=== PATIENT | male | born 1950 | race Hispanic/Latino ===

== ENCOUNTER → 2022-10-20 | Outpatient (CLI) | payer OTHER ==
[~2022-10-20] MED LIST: ALLO100T PO; ASPI-556 PO; ATOR40TA69 PO; CANA1TAB PO; CARV12.511 PO; FENO145T26 PO; FURO20TA4 PO; LOSA50TA64 PO
== END | disposition home or self-care (01) ==
LOC: RAH 14:31
PROVIDERS: ATTEND Internal Medicine
DX: M10.9 Gout, unspecified (principal)
CPT/HCPCS: 73130

== ENCOUNTER → 2022-12-08 | Outpatient (CLI) | payer OTHER | END | disposition home or self-care (01) | LOC: RAH 10:26 | PROVIDERS: ATTEND Internal Medicine | DX: I51.7 Cardiomegaly (principal); R05.3 Chronic cough | CPT/HCPCS: 71046 ==

== ENCOUNTER → 2023-05-14 | Outpatient (CLI) | payer OTHER ==
[~2023-05-14] MED LIST changes: +REGADENOSON 0.4 MG/5 ML PF SYG IVP ONE
== END | disposition home or self-care (01) ==
LOC: SHCH 08:54
PROVIDERS: ATTEND Internal Medicine Cardiovascular Disease
DX: R94.39 Abnormal result of other cardiovascular function study (principal); R94.31 Abnormal electrocardiogram [ECG] [EKG]; I51.7 Cardiomegaly
CPT/HCPCS: 78452; 96374; 93017; J2785; A9500 ×2

== ENCOUNTER → 2023-05-26 | Outpatient (CLI) | payer OTHER ==
[~2023-05-26] MED LIST changes: -REGADENOSON 0.4 MG/5 ML PF SYG IVP ONE
== END | disposition home or self-care (01) ==
LOC: SHCH 10:43
PROVIDERS: ATTEND Internal Medicine Cardiovascular Disease
DX: I08.1 Rheumatic disorders of both mitral and tricuspid valves (principal); I25.10 Atherosclerotic heart disease of native coronary artery without angina pectoris; Z95.3 Presence of xenogenic heart valve
CPT/HCPCS: 93306

== ENCOUNTER → 2023-06-18 | Outpatient (CLI) | payer OTHER ==
[2023-06-18 16:32] LABS: ALBUMIN 3.6 g/dL (3.5-5.0); BILIRUBIN,TOTAL 0.8 mg/dL (0.2-1.0); CREATININE 1.4 mg/dL (0.5-1.5); POTASSIUM 4.2 mmol/L (3.5-5.1); TOTAL PROTEIN, SERUM 8.3 g/dL (6.0-8.3)
== END | disposition home or self-care (01) ==
LOC: LAB 14:39
PROVIDERS: ATTEND Internal Medicine Cardiovascular Disease
DX: I10 Essential (primary) hypertension (principal); I48.0 Paroxysmal atrial fibrillation; I35.8 Other nonrheumatic aortic valve disorders
CPT/HCPCS: 36415; 80053; 83880

== ENCOUNTER 2023-09-18 05:36 | Day surgery (SDC) | payer OTHER ==
[2023-09-13 10:52] LABS: BASOPHILS # (AUTO) 0.06 K/uL (0.00-0.20); BASOPHILS % (AUTO) 0.6 % (0.0-5.0); EOSINOPHILS # (AUTO) 0.35 K/uL (0.00-0.70); EOSINOPHILS % (AUTO) 3.5 % (0.0-8.0); HEMATOCRIT 49.1 % (42-54); IMMATURE GRANULOCYTE ABSOLUTE 0.04 K/uL (0-1); LYMPHOCYTES # (AUTO) 1.5 K/uL (1.0-4.8); LYMPHOCYTES % (AUTO) 15.1 % (21.0-51.0); MEAN CORPUSCULAR HEMOGLOBIN 29.7 pg (27.0-33.0); MEAN CORPUSCULAR HGB CONC 32.6 g/dL (32.0-36.0); MEAN CORPUSCULAR VOLUME 91.1 fL (79-99); MONOCYTES # (AUTO) 0.6 K/uL (0.1-1.0); NEUTROPHILS # (AUTO) 7.5 K/uL (1.8-7.7); NEUTROPHILS % (AUTO) 74.4 % (40.0-77.0); PLATELET COUNT (AUTO) 232 K/uL (130-400); RED BLOOD CELL COUNT(AUTO) 5.39 MIL/uL (4.50-6.20); RED CELL DISTRIBUTION WIDTH 15.1 % (11.0-15.5); WHITE BLOOD COUNT (AUTO) 10.1 K/uL (4.8-10.8)
[2023-09-13 10:58] VITALS: BP 141/86; PULSE 90; RESP 21
[2023-09-13 11:05] LABS: INR 1.05 (0.85-1.15); PROTHROMBIN TIME 12.1 SEC (9.6-11.6)
[2023-09-13 11:06] LABS: CREATININE 1.3 mg/dL (0.5-1.5); POTASSIUM 4.4 mmol/L (3.5-5.1)
[2023-09-13 11:07] LABS: PARTIAL THROMBOPLASTIN TIME 31.5 SEC (26.3-35.5)
[2023-09-13 11:23] LABS: B-TYPE NATRIURETIC PEPTIDE 1760 pg/mL (0-100)
[2023-09-18] VITALS (9 sets, daily range): BP systolic 95–151; BP diastolic 58–86; PULSE 55–97; RESP 16–22
[~2023-09-18] VITALS: Ht 157.5 cm; Wt 66.3 kg
[~2023-09-18 05:36] MED LIST changes: +BRIM5DRO5 OP; -CANA1TAB PO; -CARV12.511 PO; -FENO145T26 PO; +METF-444 PO; +METO-391 PO; +RIVA2.5T PO
[2023-09-18] MEDS ORDERED: 0.9%NACL 1000ML 1,000 ML IV ONE (07:08)
[2023-09-18] MEDS ORDERED: IOHEXOL 350 MG/ML 100ML INFUS..BTL IV ONE (07:13)
[2023-09-18] MEDS ORDERED: IOHEXOL-350 50ML VIAL IV ONE (07:13)
[2023-09-18] MEDS ORDERED: LIDOCAINE HCL 400MG/20ML VIAL ONE (07:13)
[2023-09-18] MEDS ORDERED: FENTANYL CITRATE PF 50 MCG/1 ML 2ML VIAL ONE (07:18)
[2023-09-18] MEDS ORDERED: NITROGLYCERIN 50MG/D5W 250ML 1 BOT ONE (07:19)
[2023-09-18] MEDS ORDERED: MIDAZOLAM HCL 1 MG/ML 2ML VIAL ONE (07:19)
[2023-09-18] MEDS ORDERED: IOHEXOL-350 75 ML VIAL IV ONE (08:12)
[2023-09-18] MEDS ORDERED: GLUCAGON 1MG KIT 1 MG ML IM PRN (09:30)
[2023-09-18] MEDS ORDERED: DEXTROSE 50%-WATER 50 ML DISP.SYRIN IV PRN (09:30)
[2023-09-18] MEDS ORDERED: ACETAMINOPHEN 500 MG TABLET PO ONE (10:00)
== END 2023-09-18 13:30 | disposition home or self-care (01) ==
LOC: DAH 05:36
PROVIDERS: ATTEND Internal Medicine Cardiovascular Disease
DX: I25.10 Atherosclerotic heart disease of native coronary artery without angina pectoris (principal); I25.82 Chronic total occlusion of coronary artery; I35.0 Nonrheumatic aortic (valve) stenosis; I25.5 Ischemic cardiomyopathy; I11.0 Hypertensive heart disease with heart failure; I50.42 Chronic combined systolic (congestive) and diastolic (congestive) heart failure; E78.5 Hyperlipidemia, unspecified; E11.9 Type 2 diabetes mellitus without complications; M10.9 Gout, unspecified; G47.33 Obstructive sleep apnea (adult) (pediatric); J84.10 Pulmonary fibrosis, unspecified; I44.1 Atrioventricular block, second degree; Z95.2 Presence of prosthetic heart valve; Z79.82 Long term (current) use of aspirin; Z79.84 Long term (current) use of oral hypoglycemic drugs; Z79.899 Other long term (current) drug therapy; Z79.01 Long term (current) use of anticoagulants
CPT/HCPCS: 80048; 83880; 85025; 85610; 85730; 36415; 71045; 93005; 93455; 82948; C1894 ×2; C1760; J3010; J3490 ×2; J7030; J2250; J1644; Q9967 ×2; A4615; A4215; A4222; A4221; A4663; A4216; A4606; Q9965; A4223 ×3; 99156; 99157

== ENCOUNTER → 2023-12-24 | Outpatient (CLI) | payer OTHER | END | disposition home or self-care (01) | LOC: SHCH 08:21 | PROVIDERS: ATTEND Internal Medicine Cardiovascular Disease | DX: I08.3 Combined rheumatic disorders of mitral, aortic and tricuspid valves (principal); I50.22 Chronic systolic (congestive) heart failure; I25.5 Ischemic cardiomyopathy | CPT/HCPCS: 93306 ==

== ENCOUNTER → 2024-03-27 | Outpatient (CLI) | payer OTHER ==
[2024-03-27 16:15] LABS: HEMATOCRIT 49.4 % (42-54); LYMPHOCYTES % (AUTO) 13.1 % (21.0-51.0); MEAN CORPUSCULAR HEMOGLOBIN 29.8 pg (27.0-33.0); MEAN CORPUSCULAR HGB CONC 33.2 g/dL (32.0-36.0); MEAN CORPUSCULAR VOLUME 89.7 fL (79-99); MONOCYTES % (AUTO) 5.4 % (3.0-13.0); NEUTROPHILS % (AUTO) 78.6 % (40.0-77.0); PLATELET COUNT (AUTO) 250 K/uL (130-400); RED BLOOD CELL COUNT(AUTO) 5.51 MIL/uL (4.50-6.20); RED CELL DISTRIBUTION WIDTH 14.3 % (11.0-15.5); WHITE BLOOD COUNT (AUTO) 11.1 K/uL (4.8-10.8)
[2024-03-27 16:16] LABS: BASOPHILS # (AUTO) 0.07 K/uL (0.00-0.20); BASOPHILS % (AUTO) 0.6 % (0.0-5.0); EOSINOPHILS % (AUTO) 1.8 % (0.0-8.0); IMMATURE GRANULOCYTE ABSOLUTE 0.05 K/uL (0-1); LYMPHOCYTES # (AUTO) 1.5 K/uL (1.0-4.8); MONOCYTES # (AUTO) 0.6 K/uL (0.1-1.0); NEUTROPHILS # (AUTO) 8.7 K/uL (1.8-7.7)
[2024-03-27 16:45] LABS: ALBUMIN 3.8 g/dL (3.5-5.0); BILIRUBIN,TOTAL 0.9 mg/dL (0.2-1.0); CREATININE 1.4 mg/dL (0.5-1.3); MAGNESIUM 2.1 mg/dL (1.80-2.40); POTASSIUM 4.7 mmol/L (3.5-5.1); TOTAL PROTEIN, SERUM 8.8 g/dL (6.0-8.3); URIC ACID 8.4 mg/dL (2.6-7.2)
== END | disposition home or self-care (01) ==
LOC: LAB 14:51
PROVIDERS: ATTEND Internal Medicine Cardiovascular Disease
DX: I10 Essential (primary) hypertension (principal); R06.09 Other forms of dyspnea
CPT/HCPCS: 36415; 80053; 83735; 83880; 84550; 85025

== ENCOUNTER 2024-09-21 19:43 | Emergency (ER) | payer OTHER ==
[~2024-09-21] VITALS: Ht 152.4 cm; Wt 65.8 kg
[2024-09-21 19:44] VITALS: BP 122/74; PULSE 103; RESP 20; TEMP 96.8
--- NOTE | 2024-09-21 20:06 | ERN ---
ED Note History of Present Illness Stated Complaint: RT FOOT DISCOLORATION Chief Complaint: Lower Extremity Pain/Injury Time Seen by MD: 19:49 Dictation: Patient is brought in by son. Because he said he had noticed head and seen his done and a month. But the patient is able to tell the son. That he has had this discoloration of bilateral feet for the last month. Had seen Dr hinojosa in the past for angiogram angioplasty. Patient is denying any new difficulties or pains or issues with ambulation no fevers no chills Allergies: Coded Allergies: No Known Allergies (Unverified Allergy, Unknown, 07/06/16) Home Meds Reported Medications Brimonidine Tartrate (Brimonidine Tartrate) 0.2 % Drops, 5 ML OP HS, DROP 09/13/23 Metoprolol Succinate (Metoprolol Succinate) 50 Mg Tab.er.24h, 50 MG PO AM, TAB 09/13/23 Rivaroxaban (Xarelto) 2.5 Mg Tablet, 2.5 MG PO BID, TAB 09/13/23 Metformin HCl (Metformin HCl) 500 Mg Tablet, 500 MG PO BID, TAB 09/13/23 Allopurinol (Allopurinol) 100 Mg Tablet, 300 MG PO AM, TAB 07/06/16 Aspirin (Aspir 81) 81 Mg Tablet.dr, 81 MG PO HS, TAB 07/06/16 Furosemide (Furosemide) 20 Mg Tablet, 40 MG PO BID, TAB 07/06/16 Atorvastatin Calcium (LIPITOR) 40 Mg Tablet, 20 MG PO NOON, TAB 07/06/16 Losartan Potassium (Losartan Potassium) 50 Mg Tablet, 25 MG PO AM, TAB 07/06/16 Past Medical History Past Medical History: Diabetes-Type II, High Cholesterol, Hypertension, Other Additional Past Medical Hx: POOR HISTORIAN Surgical History: CABG Surgical History Other: POOR HISTORIAN Review of System Dictation Constitutional: Negative for fever,chills, and weight loss Eyes: Negative for injury, pain,redness, and discharge ENT: Negative for injury,pain or swelling Cardiovascular: Negative for chest pain, palpitations, and edema Respiratory: Negative for shortness of breath, cough, and wheezing, Abdomen/GI: Negative for abdominal pain, nausea, vomiting, diarrhea, and constipation Back: Negative for injury and pain : Negative for injury, bleeding and discharge MS/Extremity: Negative for injury and deformity Skin: Chronic foot coloration chronic foot pain Neuro: Negative for headache, weakness, numbness, tingling, and seizure Psych: Negative for suicide ideation, homicidal ideation, and hallucinations Initial Vital Sign VS Vital Signs Date Time Temp Pulse Resp B/P (MAP) Pulse Ox O2 Delivery O2 Flow Rate FiO2 09/21/24 19:44 96.8 103 20 122/74 95 Room Air Physical Exam Dictation General: awake, alert, NAD Head/Face: Normocephalic, atraumatic Eyes: PERRL, EOMI, vision at baseline ENT: oral cavity clear, TMs clear, no signs of infection Neck: Trachea midline, supple, no nuchal rigidity Cardiovascular: RRR, normal S1/S2, No MRGs, no JVD Respiratory: CTAB, no respiratory distress, No rales or wheezes Abdomen: Soft, non-tender, non-distended, normal bowel sounds, no guarding or rebound. Skin: Chronic hemosiderin deposits and changes in pod and bilateral both feet. No diabetic foot ulcers or wounds or lesions MS/Extremity: Pulses equal, no cyanosis, neurovascular intact, FROM Neuro: COAx4, GCS 15, strength 5/5, CN 2-12 intact, normal cerebellar exam, normal gait, Psych: Normal behavior, mood, and affect normal ED Course ED Course Orders Procedure Category Date Status Time Cbc With Differential LAB 09/21/24 Logged 19:46 Basic Metabolic Panel LAB 09/21/24 Logged 19:46 Troponin I High LAB 09/21/24 Logged Sensitivity 19:46 Pt And Ptt LAB 09/21/24 Logged 19:46 12 Lead Ekg Tracing- EKG 09/21/24 Logged Technical 19:46 Creatine Kinase, Total LAB 09/21/24 Logged 19:46 Us Arterial Bilat Low US 09/21/24 Taken Ext Dupl 19:46 Chest 1vw RAD 09/21/24 Logged 19:46 Vital Signs Date Time Temp Pulse Resp B/P (MAP) Pulse Ox O2 Delivery O2 Flow Rate FiO2 09/21/24 19:44 96.8 103 20 122/74 95 Room Air Medical Decision Making MDM Had a pleasant conversation with the patient's son. I told him eventually he needs to follow up with the heart doctor another angioplasty and/or angiogram. He said he had had seen the cardiology many years in the past. I said yes this was good. But it needs to continue fall he may need more stents in the legs. Begin there is no new acute changes in these last hours or days. I did consider the six piece. Patient does have weak pulses bilaterally I has does have good flexion and sensation. The son said yes he can follow up with the PCP and the bog worker for another angiogram. Again the pain is not out of proportion. There is no cold there is bilateral warmth present. This is chronic issue he probably is stable for outpatient management. Got the bedside read from cert pharmacy tech. Said biophysical left and biphasic are monophasic on the right. Again I spoke to the the patient and the son. I said we can give some pain medications here. I said we can admitted to the hospital and to have Cardiology assess. And possible angiogram here but they said no given that definitive care would be by the bog worker. They will follow up with the bog worker. Was an understanding agreement. With this I will respect to her autonomy and decision-making capacity. He is stable for outpatient management DX & DISP Disposition: Discharge Departure Impression: Primary Impression: PAD (peripheral artery disease) Condition: Stable Referrals: JESSICA MILLER MD (PCP) JENNY HENDRIX MD Sep 21, 2024 20:06
--- NOTE | 2024-09-21 20:42 | HMCIMG ---
US ARTERIAL BILAT LOW EXT DUPL HISTORY: Discoloration 2 feet COMPARISON: None TECHNIQUE: Bilateral lower extremity arterial Doppler ultrasound study was performed. FINDINGS: Normal triphasic and biphasic arterial waveforms are noted in the right common femoral, superficial femoral, popliteal, anterior tibial and dorsalis pedal arteries. Abnormal monophasic arterial waveforms are noted in the right common femoral, deep femoral, superficial femoral, popliteal, anterior tibial tibial, dorsalis pedal bilateral posterior tibial arteries. On the right, the peak systolic velocity of the common femoral artery is 73 cm/s, the proximal femoral artery is 19 cm/s, the mid femoral artery is 9 cm/s, the distal femoral artery is 479 cm/s, the proximal popliteal artery is 202 cm/s, the distal popliteal artery is 33 cm/s, the anterior tibial artery is 48 cm/s, the posterior tibial artery artery is 14 cm/s,and the dorsalis pedal artery is 29 cm/s. On the left, the peak systolic velocity of the common femoral artery is 83 cm/s, the proximal femoral artery is 68 cm/s, the mid femoral artery is 66 cm/s, the distal femoral artery is 60 cm/s, the proximal popliteal artery is 87 cm/s, the distal popliteal artery is 87 cm/s, the anterior tibial artery is 38 cm/s, the posterior tibial artery artery is 55 cm/s,and the dorsalis pedal artery is 41 cm/s. IMPRESSION: 1. Atherosclerotic disease. 2. Abnormal monophasic arterial waveforms are noted in the right common femoral, deep femoral, superficial femoral, popliteal, anterior tibial tibial, dorsalis pedal bilateral posterior tibial arteries. High-grade stenosis is seen with elevated peak systolic velocity in the distal portion of the right superficial femoral artery.
[2024-09-21] MEDS: HYDROcodone/APAP 5/325 1 TAB TABLET PO ONE (21:21)
--- NOTE | 2024-09-22 05:16 | EKG ---
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: [id number] : 1950 Requested By: JENNY HENDRIX Order Number: [id number] Reading MD: Sun Harris Measurements Intervals [place] Rate: 103 P: 0 [place]: 73 QRS: 4 QRSD: 99 T: 182 QT: 390 QTc: 510 Interpretive Statements Sinus tachycardia Multiform ventricular premature complexes Abnormal T, consider ischemia, diffuse leads Prolonged QT interval Compared to ECG 09/13/2023 10:23:13 Sinus rhythm no longer present Left ventricular hypertrophy no longer present T-wave abnormality still present Possible ischemia still present Electronically Signed On 09-22-2024 18:09:53 DOOR CLOSER by Sun Harris Please click the below link to view image of tracing.
[2024-09-23] MEDS ORDERED: METH1PAT PO (00:06)
[2024-09-23] MEDS ORDERED: METO-391 PO (00:06)
[2024-09-23] MEDS ORDERED: FURO40TA5 PO (00:06)
[2024-09-23] MEDS ORDERED: ATOR10 PO (00:06)
[2024-09-23] MEDS ORDERED: ALLO300T2 PO (00:06)
[2024-09-23] MEDS ORDERED: RIVA10TA PO (00:06)
[2024-09-23] MEDS ORDERED: OMEP40CA21 PO (00:06)
[2024-09-23] MEDS ORDERED: LOSA1TAB54 PO (00:06)
[2024-09-23] MEDS ORDERED: ASPI-1197 PO (00:06)
== END 2024-09-21 21:32 | disposition home or self-care (01) ==
LOC: EDH 19:43
DX: I73.9 Peripheral vascular disease, unspecified (principal); E11.51 Type 2 diabetes mellitus with diabetic peripheral angiopathy without gangrene; E78.00 Pure hypercholesterolemia, unspecified; I10 Essential (primary) hypertension; Z79.01 Long term (current) use of anticoagulants; Z79.82 Long term (current) use of aspirin; Z79.84 Long term (current) use of oral hypoglycemic drugs; Z95.1 Presence of aortocoronary bypass graft
CPT/HCPCS: 93005; 93925; 99284